=== PATIENT | male | born 1980 | race Two or more races ===

== ENCOUNTER 2016-07-05 08:59 | Emergency (ER) | payer MEDICAID ==
[~2016-07-05] VITALS: Ht 175.3 cm; Wt 77.0 kg
[2016-07-05] MEDS ORDERED: SODIUM CHLORIDE 0.9% 1,000 ML IV ONE (09:13)
[2016-07-05] MEDS ORDERED: LORAZEPAM 2MG/ML CPJ IV ONE (09:15)
[2016-07-05 09:34] LABS: PARTIAL THROMBOPLASTIN TIME 24.7 sec (24.0-34.0); PROTHROMBIN TIME 10.4 sec
[2016-07-05 09:37] LABS: BASOPHILS % 0.5 % (0.0-2.0); EOSINOPHILS % 0.6 % (0.0-5.0); HEMATOCRIT. 46.8 % (42.0-52.0); HEMOGLOBIN. 16.1 g/dL (14.0-18.0); LYMPHOCYTES % 15.9 % (20.0-50.0); MEAN CORPUSCULAR HGB CONC 34.4 g/dL (31.0-37.0); MEAN CORPUSCULAR VOLUME 96.1 fL (80.0-94.0); MEAN PLATELET VOLUME 9.1 fl (7.4-10.4); MONOCYTES % 4.7 % (2.0-8.0); NEUTROPHILS % 78.3 % (40.0-76.0); PLATELET 181 x1000/uL (130-400); RED BLOOD CELL COUNT 4.87 mill/uL (4.7-6.1); RED CELL DISTRIBUTION WIDTH 13.3 % (11.6-14.6); WHITE BLOOD COUNT 7.4 x1000/uL (4.5-11.0)
[2016-07-05 09:41] LABS: ANION GAP 15; CALCIUM 9.7 mg/dL (8.5-10.1); CARBON DIOXIDE 25 mEq/L (21-32); CHLORIDE 101 mEq/L (98-107); INDEX HEMOLYSI 1 (1-3); INDEX ICTERIC 1 (1-4); INDEX LIPEMIC 1 (1-3); NT PRO B-TYPE NATRIURETIC PEP 6 pg/mL (5-125); TROPONIN I < 0.02 ng/mL (0.00-0.04); UREA NITROGEN BLOOD 16 mg/dL (7-21); eGFR > 60 mL/min (>60)
[2016-07-05 09:47] LABS: THYROID STIMULATING HORMONE 0.31 uIU/mL (0.36-3.74)
[2016-07-05 11:05] LABS: *AMPHETAMINES SCREEN URINE PRESUMTIVE POSITIVE (NEGATIVE); *BARBITURATES SCREEN URINE NEGATIVE (NEGATIVE); *BENZODIAZEPINES SCREEN URINE NEGATIVE (NEGATIVE); *COCAINE SCREEN URINE NEGATIVE (NEGATIVE); CANNABINOID URINE SCREEN PRESUMTIVE POSITIVE (NEGATIVE); ECSTASY MDMA SCREEN URINE CONF.TEST INDICATED (NEGATIVE); METHADONE URINE SCREEN NEGATIVE (NEGATIVE); OPIATES URINE SCREEN NEGATIVE (NEGATIVE); PHENCYCLIDINE URINE SCREEN NEGATIVE (NEGATIVE)
[2016-07-05] MEDS ORDERED: DEXAMETHASONE 10MG/ML 1ML VIAL IV ONE (11:30)
[2016-07-05 12:22] VITALS: BP 125/84
== END 2016-07-05 12:27 | disposition home or self-care (01) ==
LOC: ER 09:00
DX: J40 Bronchitis, not specified as acute or chronic (principal); F15.90 Other stimulant use, unspecified, uncomplicated; I10 Essential (primary) hypertension; R00.2 Palpitations; F12.10 Cannabis abuse, uncomplicated; I51.9 Heart disease, unspecified; F41.9 Anxiety disorder, unspecified
CPT/HCPCS: 36415; 71010; 80048; 80305; 83880; 84443; 84484; 85025; 85610; 85730; 93005; 96361; 96374; 96375; 99285; J1100; J2060; J7030; Z7610